=== PATIENT | female | born 1965 | race Caucasian/White ===

== ENCOUNTER 2023-10-06 20:15 | Inpatient (IN) | payer MEDICAID ==
[~2023-10-06] VITALS: Ht 157.5 cm; Wt 94.3 kg
[2023-10-06 20:15] VITALS: BP 120/62; PULSE 83; RESP 20; TEMP 97.5
[2023-10-06] MEDS ORDERED: ACETAMINOPHEN 325MG TABLET PO PRN (22:00)
[2023-10-06] MEDS ORDERED: ONDANSETRON HCL 4MG/2ML INJ IV PRN (22:00)
[2023-10-06] MEDS: OXYCODONE HCL/ACETAMINOPHEN 5/325MG TABLET PO PRN (23:40)
[2023-10-07 06:59] LABS: BASOPHILS % 0.7 % (0.0-2.0); EOSINOPHILS % 3.3 % (0.0-5.0); HEMOGLOBIN. 7.5 g/dL (12.0-16.0); LYMPHOCYTES % 35.3 % (20.0-50.0); MEAN CORPUSCULAR HEMOGLOBIN 31.4 pg (28.0-32.0); MEAN CORPUSCULAR HGB CONC 34.2 g/dL (31.0-37.0); MEAN CORPUSCULAR VOLUME 91.8 fL (81.0-99.0); MEAN PLATELET VOLUME 7.8 fl (7.4-10.4); MONOCYTES % 8.6 % (2.0-8.0); NEUTROPHILS % 52.1 % (40.0-76.0); PLATELET 446 x1000/uL (130-400); RED CELL DISTRIBUTION WIDTH 13.5 % (11.6-14.6); WHITE BLOOD COUNT 7.4 x1000/uL (4.5-11.0)
[2023-10-07 07:42] LABS: ALANINE AMINOTRANSFERASE 27 IU/L (10-49); ALBUMIN 3.6 g/dL (3.2-4.8); ASPARTATE AMINOTRANSFERASE 35 IU/L (<34); BILIRUBIN TOTAL 0.2 mg/dL (0.1-1.0); CALCIUM 8.5 mg/dL (8.7-10.4); CARBON DIOXIDE 27 mEq/L (21-32); CHLORIDE 107 mEq/L (98-107); CREATININE 0.7 mg/dL (0.6-1.0); GLUCOSE 88 mg/dL (70-105); POTASSIUM 4.2 mEq/L (3.5-5.1); PREALBUMIN 8.2 mg/dl (10.0-40.0); PROTEIN TOTAL 6.6 g/dL (6.0-8.3); SODIUM 140 mEq/L (136-145); UREA NITROGEN BLOOD 24 mg/dL (9-23)
[2023-10-07 08:00] VITALS: BP 108/48; PULSE 68; RESP 20; TEMP 98.1
[2023-10-07] MEDS ORDERED: MAGNESIUM/ALUMINUM HYDROXIDE/SIMETHICONE 30ML UDC PO PRN (08:30)
[2023-10-07] MEDS ORDERED: CLONIDINE 0.1MG TABLET PO PRN (08:30)
[2023-10-07] MEDS ORDERED: NALOXONE HCL 0.4MG/ML VIAL IV PRN (08:45)
[2023-10-07] MEDS: PANTOPRAZOLE 40MG DR TABLET PO SCH (09:00)
[2023-10-07 09:01] LABS: HEMATOCRIT 22.7 % (36.0-48.0); HEMOGLOBIN 7.6 g/dL (12.0-16.0)
[2023-10-07 09:49] LABS: IRON 35 ug/dL (50-170); TOTAL IRON BINDING CAPACITY 337 ug/dl (250-425)
[2023-10-07] MEDS: MULTIVITAMINS,THER W-MINERALS TABLET PO SCH (10:30)
[2023-10-07] MEDS: ASPIRIN 81MG EC TABLET PO SCH (10:31)
[2023-10-07] MEDS: SENNOSIDES 8.6MG TABLET PO PRN (10:37)
[2023-10-07 11:42] LABS: FERRITIN 108 ng/mL (10-291); FOLIC ACID (FOLATE) SERUM > 20.00 ng/mL (>5.38); VITAMIN B12 SERUM 526 pg/mL (211-911)
[2023-10-07] MEDS: FERROUS SULFATE 325MG TABLET PO SCH (16:11)
[2023-10-07] MEDS ORDERED: IRON SUCROSE COMPLEX 100 MG/5 ML ML IV SCH (17:45)
[2023-10-07] MEDS: PANTOPRAZOLE SODIUM 40 MG/VIAL IV SCH (18:00)
[2023-10-07 20:00] VITALS: BP 114/61; PULSE 88; RESP 18; TEMP 97.3
[2023-10-07] MEDS: IRON SUCROSE COMPLEX 100 MG in SODIUM CHLORIDE 0.9% 100 ML IV SCH (20:00)
[2023-10-08 06:50] LABS: INR 0.9; PROTHROMBIN TIME 10.5 sec (9.6-11.0)
[2023-10-08 06:52] LABS: EOSINOPHILS % 2.9 % (0.0-5.0); HEMATOCRIT. 24.2 % (36.0-48.0); HEMOGLOBIN. 8.3 g/dL (12.0-16.0); MEAN CORPUSCULAR HEMOGLOBIN 31.8 pg (28.0-32.0); MEAN CORPUSCULAR HGB CONC 34.4 g/dL (31.0-37.0); MEAN CORPUSCULAR VOLUME 92.5 fL (81.0-99.0); MEAN PLATELET VOLUME 8.1 fl (7.4-10.4); MONOCYTES % 7.5 % (2.0-8.0); NEUTROPHILS % 49.6 % (40.0-76.0); PLATELET 508 x1000/uL (130-400); RED BLOOD CELL COUNT 2.62 mill/uL (4.2-5.4); RED CELL DISTRIBUTION WIDTH 13.6 % (11.6-14.6); WHITE BLOOD COUNT 6.9 x1000/uL (4.5-11.0)
[2023-10-08 07:08] LABS: ALANINE AMINOTRANSFERASE 25 IU/L (10-49); ALBUMIN 3.9 g/dL (3.2-4.8); ASPARTATE AMINOTRANSFERASE 28 IU/L (<34); BILIRUBIN TOTAL 0.2 mg/dL (0.1-1.0); CALCIUM 8.6 mg/dL (8.7-10.4); CARBON DIOXIDE 27 mEq/L (21-32); CHLORIDE 105 mEq/L (98-107); CHOLESTEROL 171 mg/dL (<200); CREATININE 0.7 mg/dL (0.6-1.0); GLUCOSE 89 mg/dL (70-105); HDL CHOLESTEROL 45 mg/dL (>65); IRON 36 ug/dL (50-170); LDL CHOLESTEROL 111 mg/dL (5-100); PHOSPHORUS 3.7 mg/dL (2.5-4.9); POTASSIUM 4.4 mEq/L (3.5-5.1); PROTEIN TOTAL 6.7 g/dL (6.0-8.3); SODIUM 138 mEq/L (136-145); T4 FREE 1.42 ng/dL (0.89-1.76); THYROID STIMULATING HORMONE 1.53 uIU/mL (0.55-4.78); TOTAL IRON BINDING CAPACITY 358 ug/dl (250-425); TRIGLYCERIDE 91 mg/dL (0-150); UREA NITROGEN BLOOD 23 mg/dL (9-23)
[2023-10-08 07:11] LABS: BILIRUBIN DIRECT < 0.1 mg/dL (<=3.0); TROPONIN I HIGH SENSITIVITY < 4 ng/L (3.0-34)
[2023-10-08 08:00] VITALS: BP 100/64; PULSE 90; RESP 18; TEMP 97.9
[2023-10-08 09:31] LABS: CLARITY URINE CLEAR (CLEAR); COLOR URINE YELLOW (YELLOW); GLUCOSE URINE NEGATIVE (NEGATIVE); KETONES URINE NEGATIVE (NEGATIVE); LEUKOCYTE ESTERASE URINE TRACE (NEGATIVE); NITRITE URINE NEGATIVE (NEGATIVE); OCCULT BLOOD URINE NEGATIVE (NEGATIVE); PROTEIN URINE NEGATIVE (NEGATIVE); SPECIFIC GRAVITY URINE 1.011 (1.005-1.030); UROBILINOGEN URINE 0.2 E.U./dL (0.2-1.0)
[2023-10-08] MEDS: ASCORBIC ACID 500 MG TABLET PO SCH (09:31)
[2023-10-08 10:04] LABS: *AMPHETAMINES SCREEN URINE NEGATIVE (NEGATIVE); *BARBITURATES SCREEN URINE NEGATIVE (NEGATIVE); *BENZODIAZEPINES SCREEN URINE NEGATIVE (NEGATIVE); *COCAINE SCREEN URINE NEGATIVE (NEGATIVE); CANNABINOID URINE SCREEN NEGATIVE (NEGATIVE); ECSTASY MDMA SCREEN URINE NEGATIVE (NEGATIVE); METHADONE URINE SCREEN Neg (NEGATIVE); OPIATES URINE SCREEN NEGATIVE (NEGATIVE); PHENCYCLIDINE URINE SCREEN NEGATIVE (NEGATIVE)
[2023-10-08 10:08] LABS: SQUAMOUS EPITHELIAL CELL URINE FEW /lpf (RARE/1+)
[2023-10-08 10:09] LABS: BACTERIA URINE 5; RBC URINE 0-2 /hpf (0-2)
[2023-10-08] MEDS: FERROUS SULFATE 325MG TABLET PO SCH (17:00)
[2023-10-08 20:00] VITALS: BP 109/56; PULSE 76; RESP 19; TEMP 97.6
[2023-10-08] MEDS: CYANOCOBALAMIN 1000MCG/ML VIAL IM NR (20:38)
[2023-10-09 06:28] LABS: EOSINOPHILS % 3.2 % (0.0-5.0); HEMATOCRIT. 24.6 % (36.0-48.0); HEMOGLOBIN. 8.3 g/dL (12.0-16.0); LYMPHOCYTES % 34.9 % (20.0-50.0); MEAN CORPUSCULAR HEMOGLOBIN 31.7 pg (28.0-32.0); MEAN CORPUSCULAR VOLUME 93.2 fL (81.0-99.0); MEAN PLATELET VOLUME 7.8 fl (7.4-10.4); MONOCYTES % 8.6 % (2.0-8.0); NEUTROPHILS % 52.3 % (40.0-76.0); PLATELET 529 x1000/uL (130-400); RED BLOOD CELL COUNT 2.63 mill/uL (4.2-5.4); RED CELL DISTRIBUTION WIDTH 14.1 % (11.6-14.6); WHITE BLOOD COUNT 7.8 x1000/uL (4.5-11.0)
[2023-10-09 06:35] LABS: CARBON DIOXIDE 27 mEq/L (21-32); CHLORIDE 106 mEq/L (98-107); CREATININE 0.7 mg/dL (0.6-1.0); GLUCOSE 89 mg/dL (70-105); POTASSIUM 4.6 mEq/L (3.5-5.1); SODIUM 137 mEq/L (136-145); UREA NITROGEN BLOOD 24 mg/dL (9-23)
[2023-10-09 08:00] VITALS: BP 100/52; PULSE 67; RESP 18; TEMP 97.7
[2023-10-09] MEDS: PANTOPRAZOLE 40MG DR TABLET PO SCH (08:31)
[2023-10-09] MEDS: ERGOCALCIFEROL 50000UNITS CAPSULE PO SCH (14:15)
[2023-10-09 20:00] VITALS: BP 118/53; PULSE 86; RESP 17; TEMP 97.7
[2023-10-10 08:00] VITALS: BP 105/53; PULSE 67; RESP 18; TEMP 98.3
[2023-10-10 19:53] VITALS: BP 96/54; PULSE 95; RESP 22; TEMP 98.1
[2023-10-10] MEDS: OXYCODONE HCL 5MG TABLET PO PRN (21:57)
[2023-10-11 08:00] VITALS: BP 113/69; PULSE 77; RESP 18; TEMP 98
[2023-10-11] MEDS: POLYETHYLENE GLYCOL 3350 (17GM) 1 DOSE PACK PO SCH (12:28)
[2023-10-11 19:54] VITALS: BP 105/46; PULSE 83; RESP 20; TEMP 97.3
[2023-10-12] MEDS: NAPROXEN 375MG TABLET PO SCH (00:20)
[2023-10-12 08:00] VITALS: BP 118/59; PULSE 62; RESP 20; TEMP 98.2
[2023-10-12 20:00] VITALS: BP 108/46; PULSE 71; RESP 17; TEMP 97.7
[2023-10-13 08:00] VITALS: BP 114/70; PULSE 75; RESP 18; TEMP 97.3
[2023-10-13 12:12] LABS: EOSINOPHILS % 2.1 % (0.0-5.0); HEMATOCRIT. 26.8 % (36.0-48.0); LYMPHOCYTES % 20.4 % (20.0-50.0); MEAN CORPUSCULAR HEMOGLOBIN 31.5 pg (28.0-32.0); MEAN CORPUSCULAR HGB CONC 33.6 g/dL (31.0-37.0); MEAN CORPUSCULAR VOLUME 93.6 fL (81.0-99.0); MEAN PLATELET VOLUME 7.6 fl (7.4-10.4); NEUTROPHILS % 68.5 % (40.0-76.0); PLATELET 515 x1000/uL (130-400); RED BLOOD CELL COUNT 2.86 mill/uL (4.2-5.4); RED CELL DISTRIBUTION WIDTH 14.7 % (11.6-14.6); WHITE BLOOD COUNT 7.9 x1000/uL (4.5-11.0)
[2023-10-13 12:40] LABS: CALCIUM 8.8 mg/dL (8.7-10.4); CARBON DIOXIDE 28 mEq/L (21-32); CHLORIDE 104 mEq/L (98-107); CREATININE 0.8 mg/dL (0.6-1.0); GLUCOSE 95 mg/dL (70-105); POTASSIUM 4.1 mEq/L (3.5-5.1); SODIUM 137 mEq/L (136-145); UREA NITROGEN BLOOD 25 mg/dL (9-23)
[2023-10-13 20:00] VITALS: BP 113/59; PULSE 75; RESP 18; TEMP 97.5
[2023-10-14 07:22] LABS: BASOPHILS % 0.8 % (0.0-2.0); EOSINOPHILS % 3.1 % (0.0-5.0); HEMATOCRIT. 26.4 % (36.0-48.0); HEMOGLOBIN. 8.9 g/dL (12.0-16.0); LYMPHOCYTES % 37.6 % (20.0-50.0); MEAN CORPUSCULAR HEMOGLOBIN 31.7 pg (28.0-32.0); MEAN CORPUSCULAR HGB CONC 33.9 g/dL (31.0-37.0); MEAN CORPUSCULAR VOLUME 93.3 fL (81.0-99.0); MEAN PLATELET VOLUME 7.9 fl (7.4-10.4); MONOCYTES % 10.1 % (2.0-8.0); NEUTROPHILS % 48.4 % (40.0-76.0); PLATELET 498 x1000/uL (130-400); RED BLOOD CELL COUNT 2.83 mill/uL (4.2-5.4); RED CELL DISTRIBUTION WIDTH 14.8 % (11.6-14.6); WHITE BLOOD COUNT 6.5 x1000/uL (4.5-11.0)
[2023-10-14 07:37] LABS: CALCIUM 8.6 mg/dL (8.7-10.4); CARBON DIOXIDE 28 mEq/L (21-32); CHLORIDE 104 mEq/L (98-107); CREATININE 0.7 mg/dL (0.6-1.0); GLUCOSE 89 mg/dL (70-105); POTASSIUM 4.6 mEq/L (3.5-5.1); SODIUM 138 mEq/L (136-145); UREA NITROGEN BLOOD 23 mg/dL (9-23)
[2023-10-14 08:00] VITALS: BP 104/50; PULSE 66; RESP 18; TEMP 97.9
[2023-10-14 20:00] VITALS: BP 108/53; PULSE 73; RESP 20; TEMP 96.9
[2023-10-15 08:00] VITALS: BP 117/59; PULSE 73; RESP 18; TEMP 97.3
[2023-10-15 11:37] VITALS: RESP 16
[2023-10-15 12:51] VITALS: BP 100/58; PULSE 64; TEMP 97.3; O2SAT 99
== END 2023-10-15 14:36 | disposition home health service (06) | DRG 351 ==
PROVIDERS: ADMIT Physical Medicine & Rehabilitation Spinal Cord Injury Medicine; ATTEND Family Medicine Adult Medicine
DX: M16.11 Unilateral primary osteoarthritis, right hip (principal); D50.9 Iron deficiency anemia, unspecified; G56.01 Carpal tunnel syndrome, right upper limb; S73.101A Unspecified sprain of right hip, initial encounter; G89.4 Chronic pain syndrome; R26.9 Unspecified abnormalities of gait and mobility; Z96.653 Presence of artificial knee joint, bilateral; E55.9 Vitamin D deficiency, unspecified; M17.0 Bilateral primary osteoarthritis of knee; Z96.642 Presence of left artificial hip joint; Z74.09 Other reduced mobility; R53.1 Weakness; R53.81 Other malaise; Z87.891 Personal history of nicotine dependence; Z88.0 Allergy status to penicillin; Z91.81 History of falling; X58.XXXA Exposure to other specified factors, initial encounter; Y93.89 Activity, other specified; Y92.89 Other specified places as the place of occurrence of the external cause; Y99.8 Other external cause status
CPT/HCPCS: 36415; 80048; 80053; 80061; 80076; 80305; 81003; 82270; 82306; 82607; 82728; 82746; 83036; 83540; 83550; 83735; 84100; 84134; 84439; 84443; 84484; 85014; 85018; 85025; 85044; 93970; 97110; 97112; 97116; 97162; 97166; 97530; 97535; C9113; J3420; J7050